=== PATIENT | male | born 1940 | race Caucasian/White ===

== ENCOUNTER 2019-05-26 00:27 | Inpatient (IN) ==
[2019-05-26] MEDS ORDERED: 0.9 % Sodium Chloride 1,000 ML IVC ONE (00:53)
[2019-05-26 01:06] LABS: Basophils % 0.2 %; Eosinophils % 0.2 %; Hematocrit 39.4 % (37.5-50.1); Immature Granulocytes % 0.6 % (0-4); Lymphocytes # 0.3 K/mcL (0.6-4.6); Lymphocytes % 1.9 %; Mean Corpuscular Hemoglobin 32.9 pg (28.0-33.3); Mean Corpuscular Volume 99.7 fL (83.0-100.0); Mean Platelet Volume 10.7 fL (9.4-12.4); Monocytes # 1.3 K/mcL (0.0-1.3); Monocytes % 7.2 %; Platelet Count 370 K/mcL (140-400); Red Blood Count 3.95 M/mcL (4.19-5.50); Red Cell Distribution Width 12.9 % (11.5-14.5); Segmented Neutrophils % 89.9 %; White Blood Count 17.8 K/mcL (4.3-11.1)
[2019-05-26 01:15] LABS: Alanine Aminotransferase 37 Units/L (7-52); Albumin 3.9 g/dL (3.5-5.7); Albumin/Globulin Ratio 1.4 (1.1-2.2); Alkaline Phosphatase 92 Units/L (34-104); Aspartate Amino Transferase 20 Units/L (13-39); BUN/Creatinine Ratio 34 (6-26); Bilirubin,Total 0.4 mg/dL (0.3-1.0); Blood Urea Nitrogen 43 mg/dL (8-23); Calcium 9.2 mg/dL (8.6-10.3); Carbon Dioxide 25 mEq/L (23-29); Chloride 104 mEq/L (98-107); Globulin 2.7 g/dL (2.4-3.5); Glucose 151 mg/dL (70-105); Osmolality,Calculated 300 (280-300); Potassium 4.9 mEq/L (3.5-5.1); Sodium 138 mEq/L (136-145); Total Protein 6.6 g/dL (6.4-8.9); eGFR For African Americans > 60 (> 60); eGFR For Non-African Americans 55 (> 60)
[2019-05-26 01:17] LABS: Bilirubin,Urine Negative (Negative); Blood,Urine Negative (Negative); Clarity,Urine Clear (Clear); Color,Urine Yellow (Yellow); Glucose,Urine (UA) Normal (Normal); Ketones,Urine Negative (Negative); Leukocyte Esterase,Urine Small (Negative); Nitrite,Urine Negative (Negative); Protein,Urine 30 mg/dL (Neg-Trace); Specific Gravity,Urine 1.015 (1.010-1.025); Urobilinogen,Urine Normal (Normal)
[2019-05-26 01:34] LABS: Troponin I 0.06 ng/mL (< 0.04)
[2019-05-26 01:37] LABS: Bacteria,Urine Moderate per hpf (None-Few); Squamous Epithelial Cell,Urine Few per lpf (None-Few)
[2019-05-26] MEDS ORDERED: cefTRIAXone 1,000 MG in Water for inj. (sterile) 10 ML IVP ONE (01:41)
[2019-05-26] MEDS ORDERED: Piperacillin/Tazobactam 3.375 GM in 0.9 % Sodium Chloride Mini Bag 100 ML IVPB SCH ×2 (02:00→10:00)
[2019-05-26] MEDS ORDERED: Naloxone 0.4 MG/ML INJ IVP PRN ×2 (02:06→03:02)
[2019-05-26] MEDS ORDERED: 0.9 % Sodium Chloride 1,000 ML IVC SCH (02:15)
[2019-05-26] MEDS ORDERED: GuaiFENesin Liq 200 MG/10 ML UDC PO PRN (03:02)
[2019-05-26] MEDS ORDERED: Ipratropium/Albuterol Neb 3 ML IH PRN (03:02)
[2019-05-26] MEDS: 0.9 % Sodium Chloride 1,000 ML IVC SCH ×2 (03:57→12:11)
[2019-05-26] MEDS: Acetaminophen 325 MG TABLET PO PRN ×2 (04:41→08:30)
[2019-05-26] MEDS ORDERED: Cholecalciferol (D-3) 1,000 UNIT (25MCG) TABLET PO SCH ×2 (05:00→09:00)
[2019-05-26] MEDS ORDERED: Furosemide 40 MG TABLET PO SCH (05:00)
[2019-05-26] MEDS ORDERED: Metoprolol XL (24 HR) Succ 50 MG TAB.ER.24H PO SCH ×2 (05:00→09:00)
[2019-05-26] MEDS ORDERED: Aspirin 81 MG TAB.CHEW PO SCH ×2 (05:00→09:00)
[2019-05-26] MEDS ORDERED: Spironolactone 25 MG TABLET PO SCH (05:00)
[2019-05-26] MEDS: Ipratropium/Albuterol Neb 3 ML IH SCH ×3 (05:25→11:40)
[2019-05-26] MEDS ORDERED: Divalproex Sodium 125 MG CAPSULE PO SCH (09:00)
[2019-05-26] MEDS ORDERED: Lisinopril 20 MG TABLET PO SCH (09:00)
[2019-05-26 10:11] LABS: Basophils % 0.1 %; Hematocrit 34.6 % (37.5-50.1); Hemoglobin 11.6 g/dL (12.9-16.9); Immature Granulocytes % 0.4 % (0-4); Lymphocytes # 0.4 K/mcL (0.6-4.6); Lymphocytes % 2.1 %; Mean Corpuscular HGB Conc 33.5 g/dL (31.6-35.5); Mean Corpuscular Hemoglobin 33.8 pg (28.0-33.3); Mean Corpuscular Volume 100.9 fL (83.0-100.0); Mean Platelet Volume 10.5 fL (9.4-12.4); Monocytes # 1.1 K/mcL (0.0-1.3); Monocytes % 6.7 %; Neutrophils # 15.2 K/mcL (1.6-8.9); Platelet Count 286 K/mcL (140-400); Red Blood Count 3.43 M/mcL (4.19-5.50); Red Cell Distribution Width 13.2 % (11.5-14.5); Segmented Neutrophils % 90.7 %; White Blood Count 16.8 K/mcL (4.3-11.1)
[2019-05-26 10:38] LABS: BUN/Creatinine Ratio 30 (6-26); Blood Urea Nitrogen 35 mg/dL (8-23); Calcium 8.1 mg/dL (8.6-10.3); Carbon Dioxide 24 mEq/L (23-29); Chloride 108 mEq/L (98-107); Glucose 164 mg/dL (70-105); Osmolality,Calculated 300 (280-300); Potassium 4.5 mEq/L (3.5-5.1); Sodium 139 mEq/L (136-145); eGFR For African Americans > 60 (> 60); eGFR For Non-African Americans 60 (> 60)
[2019-05-26 14:49] VITALS: BP 138/66
[2019-05-26] MEDS ORDERED: risperiDONE 1 MG TABLET PO SCH (18:00)
[2019-05-29] MEDS ORDERED: Ketoconazole Shampoo 120 ML BOTTLE TP SCH (09:00)
== END 2019-05-26 16:12 | disposition short-term general hospital (02) | DRG 194 ==
LOC: INPGRE 00:27 → EMEROOGRE 00:27 → INPGRE 03:05
PROVIDERS: ADMIT Family Medicine; ATTEND Family Medicine

== ENCOUNTER 2019-06-30 15:23 | Observation (INO) ==
[2019-06-30] MEDS ORDERED: 0.9 % Sodium Chloride 1,000 ML IVC ONE (15:48)
[2019-06-30 16:03] LABS: Basophils % 0.1 %; Hematocrit 36.3 % (37.5-50.1); Hemoglobin 12.1 g/dL (12.9-16.9); Immature Granulocytes % 0.7 % (0-4); Lymphocytes # 0.9 K/mcL (0.6-4.6); Lymphocytes % 4.8 %; Mean Corpuscular HGB Conc 33.3 g/dL (31.6-35.5); Mean Corpuscular Hemoglobin 32.8 pg (28.0-33.3); Mean Corpuscular Volume 98.4 fL (83.0-100.0); Mean Platelet Volume 10.5 fL (9.4-12.4); Monocytes # 1.6 K/mcL (0.0-1.3); Monocytes % 8.5 %; Platelet Count 254 K/mcL (140-400); Red Blood Count 3.69 M/mcL (4.19-5.50); Red Cell Distribution Width 13.8 % (11.5-14.5); Segmented Neutrophils % 85.9 %; White Blood Count 18.8 K/mcL (4.3-11.1)
[2019-06-30 16:09] LABS: Bilirubin,Urine Negative (Negative); Blood,Urine Trace-intact (Negative); Clarity,Urine Clear (Clear); Color,Urine Yellow (Yellow); Glucose,Urine (UA) Normal (Normal); Ketones,Urine Negative (Negative); Leukocyte Esterase,Urine Small (Negative); Nitrite,Urine Negative (Negative); PH,Urine 6.5 pH Units (5.0-8.0); Protein,Urine 100 mg/dL (Neg-Trace); Specific Gravity,Urine 1.015 (1.010-1.025); Urobilinogen,Urine Normal (Normal)
[2019-06-30 16:11] LABS: VBG HCO3 25 mEq/L (21-27); VBG PCO2 35 mmHg (41-51); VBG PH 7.46 pH Units (7.32-7.42); VBG PO2 65 mmHg (25-50)
[2019-06-30 16:17] LABS: Alanine Aminotransferase 15 Units/L (7-52); Albumin/Globulin Ratio 1.6 (1.1-2.2); Alkaline Phosphatase 88 Units/L (34-104); Aspartate Amino Transferase 13 Units/L (13-39); BUN/Creatinine Ratio 30 (6-26); Bilirubin,Direct 0.1 mg/dL (0.0-0.2); Bilirubin,Indirect 0.3 mg/dL (0.0-1.0); Bilirubin,Total 0.4 mg/dL (0.3-1.0); Blood Urea Nitrogen 31 mg/dL (8-23); Calcium 9.2 mg/dL (8.6-10.3); Carbon Dioxide 24 mEq/L (23-29); Chloride 101 mEq/L (98-107); Globulin 2.5 g/dL (2.4-3.5); Glucose 133 mg/dL (70-105); Osmolality,Calculated 290 (280-300); Potassium 4.6 mEq/L (3.5-5.1); Sodium 136 mEq/L (136-145); Total Protein 6.5 g/dL (6.4-8.9); eGFR For African Americans > 60 (> 60); eGFR For Non-African Americans > 60 (> 60)
[2019-06-30 16:18] LABS: Neutrophils # 16.2 K/mcL (1.6-8.9); Squamous Epithelial Cell,Urine Few per lpf (None-Few)
[2019-06-30] MEDS ORDERED: Isovue-370 500 ML BOTTLE IVP ONE (17:03)
[2019-06-30] MEDS ORDERED: Isovue-370 500 ML BOTTLE PO ONE (17:32)
[2019-06-30] MEDS ORDERED: Naloxone 0.4 MG/ML INJ IVP PRN (21:07)
[2019-06-30] MEDS ORDERED: MOM Conc 10 ML UD.LIQ PO PRN (21:07)
[2019-06-30] MEDS ORDERED: Ondansetron 4 MG/2 ML VIAL IVP PRN (21:07)
[2019-06-30] MEDS ORDERED: Ipratropium/Albuterol Neb 3 ML IH PRN (21:07)
[2019-06-30] MEDS ORDERED: Acetaminophen 325 MG TABLET PO PRN (21:07)
[2019-06-30] MEDS: 0.9 % Sodium Chloride 1,000 ML IVC SCH (22:49)
[2019-07-01] MEDS: Furosemide 40 MG TABLET PO SCH (04:14)
[2019-07-01] MEDS: Cholecalciferol (D-3) 1,000 UNIT (25MCG) TABLET PO SCH (04:14)
[2019-07-01] MEDS: Metoprolol XL (24 HR) Succ 50 MG TAB.ER.24H PO SCH (04:14)
[2019-07-01] MEDS: Spironolactone 25 MG TABLET PO SCH (04:15)
[2019-07-01] MEDS: Aspirin 81 MG TAB.CHEW PO SCH (04:15)
[2019-07-01] MEDS: 0.9 % Sodium Chloride 1,000 ML IVC SCH (06:04)
[2019-07-01 06:11] LABS: Basophils % 0.2 %; Eosinophils % 0.1 %; Hematocrit 32.3 % (37.5-50.1); Hemoglobin 10.7 g/dL (12.9-16.9); Immature Granulocytes % 0.6 % (0-4); Lymphocytes # 1.3 K/mcL (0.6-4.6); Lymphocytes % 9.3 %; Mean Corpuscular HGB Conc 33.1 g/dL (31.6-35.5); Mean Corpuscular Hemoglobin 32.9 pg (28.0-33.3); Mean Corpuscular Volume 99.4 fL (83.0-100.0); Mean Platelet Volume 10.1 fL (9.4-12.4); Monocytes % 14.4 %; Neutrophils # 10.3 K/mcL (1.6-8.9); Platelet Count 208 K/mcL (140-400); Red Blood Count 3.25 M/mcL (4.19-5.50); Red Cell Distribution Width 13.7 % (11.5-14.5); Segmented Neutrophils % 75.4 %; White Blood Count 13.6 K/mcL (4.3-11.1)
[2019-07-01 06:27] LABS: BUN/Creatinine Ratio 25 (6-26); Blood Urea Nitrogen 21 mg/dL (8-23); Calcium 8.3 mg/dL (8.6-10.3); Carbon Dioxide 26 mEq/L (23-29); Chloride 104 mEq/L (98-107); Glucose 128 mg/dL (70-105); Osmolality,Calculated 287 (280-300); Potassium 4.1 mEq/L (3.5-5.1); Sodium 136 mEq/L (136-145); eGFR For African Americans > 60 (> 60); eGFR For Non-African Americans > 60 (> 60)
[2019-07-01] MEDS ORDERED: Divalproex Sodium 125 MG CAPSULE ONE (09:07)
[2019-07-01] MEDS ORDERED: CefTRIAXone 2,000 MG VIAL ONE (09:07)
[2019-07-01] MEDS ORDERED: D5 IVPB ONE (09:07)
[2019-07-01] MEDS ORDERED: [UNRECOGNIZED DRUG - OTHER] IVPB ONE (09:07)
[2019-07-01] MEDS ORDERED: WATER IVPB ONE (09:07)
[2019-07-01] MEDS ORDERED: 0.9 % Sodium Chloride 1,000 ML IV.SOLN ONE (14:29)
[2019-07-01] MEDS: Divalproex Sodium 125 MG CAPSULE PO SCH ×2 (16:39→20:33)
[2019-07-01] MEDS ORDERED: 0.9 % Sodium Chloride 1,000 ML IVC SCH ×2 (16:45→21:08)
[2019-07-01] MEDS: RisperiDONE-M 1 MG TAB.RAPDIS PO SCH ×2 (17:16→18:03)
[2019-07-02 05:24] LABS: Hemoglobin 10.1 g/dL (12.9-16.9); Mean Corpuscular HGB Conc 32.6 g/dL (31.6-35.5); Mean Corpuscular Hemoglobin 32.4 pg (28.0-33.3); Mean Corpuscular Volume 99.4 fL (83.0-100.0); Mean Platelet Volume 10.6 fL (9.4-12.4); Platelet Count 196 K/mcL (140-400); Red Blood Count 3.12 M/mcL (4.19-5.50); Red Cell Distribution Width 13.9 % (11.5-14.5); White Blood Count 9.8 K/mcL (4.3-11.1)
[2019-07-02 05:48] LABS: Alanine Aminotransferase 15 Units/L (7-52); Albumin 3.1 g/dL (3.5-5.7); Albumin/Globulin Ratio 1.4 (1.1-2.2); Alkaline Phosphatase 63 Units/L (34-104); Aspartate Amino Transferase 11 Units/L (13-39); BUN/Creatinine Ratio 26 (6-26); Bilirubin,Total 0.3 mg/dL (0.3-1.0); Blood Urea Nitrogen 19 mg/dL (8-23); Carbon Dioxide 25 mEq/L (23-29); Chloride 108 mEq/L (98-107); Globulin 2.2 g/dL (2.4-3.5); Glucose 112 mg/dL (70-105); Osmolality,Calculated 291 (280-300); Potassium 4.2 mEq/L (3.5-5.1); Sodium 139 mEq/L (136-145); Total Protein 5.3 g/dL (6.4-8.9); eGFR For African Americans > 60 (> 60); eGFR For Non-African Americans > 60 (> 60)
[2019-07-02] MEDS: Furosemide 40 MG TABLET PO SCH (06:03)
[2019-07-02] MEDS: Metoprolol XL (24 HR) Succ 50 MG TAB.ER.24H PO SCH (06:03)
[2019-07-02] MEDS: Aspirin 81 MG TAB.CHEW PO SCH (06:03)
[2019-07-02] MEDS: Cholecalciferol (D-3) 1,000 UNIT (25MCG) TABLET PO SCH (06:03)
[2019-07-02] MEDS: Spironolactone 25 MG TABLET PO SCH (06:03)
[2019-07-02 06:57] VITALS: BP 144/75
[2019-07-02] MEDS ORDERED: cefTRIAXone 1,000 MG in 0.9 % Sodium Chloride Mini Bag 100 ML IVPB SCH (09:00)
[2019-07-02] MEDS: Divalproex Sodium 125 MG CAPSULE PO SCH (09:05)
[2019-07-03] MEDS ORDERED: Ketoconazole Shampoo 120 ML BOTTLE TP SCH (09:00)
== END 2019-07-02 15:00 ==
LOC: INPGRE 15:23 → EMEROOGRE 15:23 → INPGRE 22:13
PROVIDERS: ADMIT Family Medicine; ATTEND Family Medicine